=== PATIENT | female | born 2000 | race Hispanic/Latino ===

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

== ENCOUNTER 2023-10-11 14:38 | Emergency (ER) | payer OTHER, SELFPAY ==
[2023-10-11 15:55] LABS: Specific Gravity 1.029 (1.005-1.030)
[2023-10-11 15:56] LABS: Specific Gravity 1.023 (1.005-1.030); Urine Bacteria <20 /HPF (<20); Urine Bilirubin NEGATIVE (Negative); Urine Blood 3+ (OVER) (Negative); Urine Clarity Extremely Turbid (Clear); Urine Color Yellow (Yellow); Urine Crystals Unidentified Few /HPF (None Seen); Urine Culture Reflex Order NOT NEEDED; Urine Glucose NEGATIVE (Negative); Urine Ketones NEGATIVE (Negative); Urine Micro Reflex YN NO BILL MICROSCOPIC; Urine Mucus 4+ /HPF (None Seen); Urine Nitrite NEGATIVE (Negative); Urine Protein TRACE (Negative); Urine RBC <5 /HPF (None Seen); Urine Urobilinogen Normal (Normal); Urine WBC <5 /HPF (<5); Urine pH 6.5 (5.0-7.0)
--- NOTE | 2023-10-11 16:31 | EDPHYS ---
Physician Documentation [facility] Name: Hayley Blakely Age: 23 yrs Sex: Female : 2000 Arrival Date: 10/11/2023 Time: 14:38 Bed 11 Private MD: ED Physician Brian Mccarty HPI: 10/10 15:08 This 23 yrs old Female presents to ER via Ambulatory with complaints of sb4 Vaginal Pain. 15:21 Patient states that she started her menstrual cycle 5 days ago and had placed a tampon. sb4 She states that she got drunk that night and is not sure that she ever removed the tampon. But she has used other tampons since. She does report some lower pelvic pain, but is not sure if it is secondary to her menstrual cycle or not. She denies having any sexual intercourse. Denies any burning with urination or painful urination. Historical: - Allergies: 14:47 No Known Allergies; ll1 - PMHx: 14:47 None; ll1 - PSHx: 14:47 None; ll1 - Immunization history:: Adult Immunizations up to date. - Social history:: Smoking status: Patient denies any tobacco usage or history of. ROS: 15:22 Positive for pelvic pain, sb4 15:22 Constitutional: Negative for fever, chills, and weight loss, 15:22 All other systems are negative, Exam: 15:22 Constitutional: This is a well developed, well nourished patient who is awake, alert, sb4 and in no acute distress. Head/Face: Normocephalic, atraumatic. Eyes: Extra-ocular motions intact. Periorbital areas with no swelling, redness, or edema. ENT: Mucous membranes moist. Skin: Warm, dry with normal turgor. Normal color with no rashes, no lesions, and no evidence of cellulitis. 16:31 Abdomen/GI: Soft, non-tender, no distension. 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 4 in. ; Pain 4/10; 14:47 Body Mass Index 28.32 (74.84 kg, 162.56 cm) ll1 14:47 Pain Scale: Adult ll1 MDM: 14:45 Patient medically screened. sb4 16:30 Data reviewed: vital signs, nurses notes, lab test result(s), and as a result, I will sb4 discharge patient. Counseling: I had a detailed discussion with the patient and/or guardian regarding the historical points, exam findings, and any diagnostic results supporting the discharge/admit diagnosis, lab results, to return to the emergency department if symptoms worsen or persist or if there are any questions or concerns that arise at home. 10/10 14:54 Order name: UAM; Complete Time: 15:58 sb4 10/10 14:54 Order name: Test, Urine; Complete Time: 15:58 sb4 10/10 14:54 Order name: Pelvic Exam Setup; Complete Time: 15:55 sb4 Administered Medications: No medications were administered Disposition: 19:10 I was immediately available on-site in the Emergency Department for consultation in the ms3 care of the patient. Disposition Summary: 10/11/23 16:31 Discharge Ordered Notes: Location: Home sb4 Problem: new sb4 Symptoms: have improved sb4 Condition: Stable sb4 Diagnosis - Dysmenorrhea, unspecified sb4 Followup: sb4 - With: Private Physician - When: As needed - Reason: Recheck today's complaints, Re-evaluation by your physician Discharge Instructions: - Discharge Summary Sheet sb4 - Dysmenorrhea sb4 Forms: - Work release form bd - Patient Portal Instructions sb4 - Leadership Thank You Letter sb4 Signatures: Dispatcher [employer] Cecelia Moran RN RN ll1 Brian Mccarty, DO DO ms3 Ashleigh Morse PA-C PA-C sb4 Corrections: (The following items were deleted from the chart) 14:55 14:55 Urinalysis W/Microscopic+U.LAB.BRZ ordered. EDMS EDMS 14:55 14:55 Test, Urine+UC.LAB.BRZ ordered. EDMS EDMS
--- NOTE | 2023-10-11 16:31 | ER ---
Nurse's Notes [facility] Name: Hayley Blakely Age: 23 yrs Sex: Female : 2000 Arrival Date: 10/11/2023 Time: 14:38 Bed 11 Private MD: Diagnosis: Dysmenorrhea, unspecified Presentation: 10/10 14:47 Chief complaint: Patient states: Had a tampon in a few days ago and went out drinking. ll1 Doesn't remember removing tampon. Having pelvic pain for 2 days. Coronavirus screen: Client denies travel out of the [place] in the last 14 days. At this time, the client does not indicate any symptoms associated with coronavirus-19. Ebola Screen: Patient denies travel to an Ebola-affected area in the 21 days before illness onset. Initial Sepsis Screen: Does the patient meet any 2 criteria? No. Patient's initial sepsis screen is negative. Does the patient have a suspected source of infection? No. Patient's initial sepsis screen is negative. Risk Assessment: Do you want to hurt yourself or someone else? Patient reports no desire to harm self or others. Onset of symptoms was October 09, 2023. 14:47 Method Of Arrival: Ambulatory ll1 14:47 Acuity: PHIL 3 ll1 Triage Assessment: 14:47 General: Appears uncomfortable, Behavior is calm, cooperative, appropriate for age. ll1 Pain: Complains of pain in pelvis Pain currently is 4 out of 10 on a pain scale. Quality of pain is described as aching, crampy. : Reports pain in bilateral in suprapubic area possible tampon in vaginal area. Historical: - Allergies: 14:47 No Known Allergies; ll1 - PMHx: 14:47 None; ll1 - PSHx: 14:47 None; ll1 - Immunization history:: Adult Immunizations up to date. - Social history:: Smoking status: Patient denies any tobacco usage or history of. Screenin:30 [facility] ED Fall Risk Assessment (Adult) History of falling in the last 3 months, iw including since admission No falls in past 3 months (0 pts) Confusion or Disorientation No (0 pts) Intoxicated or Sedated No (0 pts) Impaired Gait No (0 pts) Mobility Assist Device Used No (0 pt) Altered Elimination No (0 pt) Score/Fall Risk Level 0 - 2 = Low Risk Oriented to surroundings, Maintained a safe environment. Abuse screen: Denies threats or abuse. Denies injuries from another. Nutritional screening: No deficits noted. Tuberculosis screening: No symptoms or risk factors identified. Vital Signs: 14:47 BP 131 / 89; Pulse 80; Resp 16; Temp 97.1; Pulse Ox 100% ; Weight 74.84 kg; Height 5 ll1 ft. 4 in. ; Pain 4/10; 14:47 Body Mass Index 28.32 (74.84 kg, 162.56 cm) ll1 14:47 Pain Scale: Adult ll1 ED Course: 14:40 Patient arrived in ED. mr 14:42 Ashleigh Morse PA-C is PHCP. sb4 14:42 Brian Mccarty DO is Attending Physician. sb4 14:49 Triage completed. ll1 14:49 Arm band placed on. ll1 16:00 Assist provider with foreign body removal of tampon from vagina. using a speculum Set iw up for procedure. Performed by Ashleigh Morse PA-C Patient tolerated well. 16:37 Sneha Ren, RN is Primary Nurse. iw Administered Medications: No medications were administered Medication: 16:00 VIS not applicable for this client. iw Outcome: 16:31 Discharge ordered by . sb4 16:38 Patient left the ED. iw Signatures: Isabelle Overton, Reg Reg Sneha Ren, RN RN iw Cecelia Gross RN RN [facility] Ashleigh Morse PA-C PA-C sb4 Corrections: (The following items were deleted from the chart) 20:06 16:00 Assist provider with foreign body removal iw iw
[2023-10-11 16:41] VITALS: BP 131/89; TEMP 97.1; O2SAT 100
== END 2023-10-11 16:38 | disposition home or self-care (01) ==
LOC: ER 14:38
DX: N94.6 Dysmenorrhea, unspecified (principal)
CPT/HCPCS: 81001; 81025

== ENCOUNTER 2023-12-04 14:49 | Emergency (ER) | payer SELFPAY ==
[2023-12-04 15:43] LABS: SARS-CoV-2 Antigen CONTROL BLUE LINE VIS/BG OK; SARS-CoV-2 Antigen Rapid Res Negative (Negative)
--- NOTE | 2023-12-04 16:34 | ER ---
Nurse's Notes [facility] Name: Hayley Blakely Age: 23 yrs Sex: Female : 2000 Arrival Date: 12/04/2023 Time: 14:49 Bed DX3 Private MD: Diagnosis: Nasal congestion Presentation: 12/03 15:03 Chief complaint: Called into work last night with headache, body aches, and sinus hb congestion, work sent for COVID test. Coronavirus screen: At this time, the client does not indicate any symptoms associated with coronavirus-19. Ebola Screen: No symptoms or risks identified at this time. Initial Sepsis Screen: Does the patient meet any 2 criteria? No. Patient's initial sepsis screen is negative. Does the patient have a suspected source of infection? No. Patient's initial sepsis screen is negative. Risk Assessment: Do you want to hurt yourself or someone else? Patient reports no desire to harm self or others. Onset of symptoms was December 03, 2023. 15:03 Method Of Arrival: Ambulatory hb 15:03 Acuity: PHIL 4 hb Triage Assessment: 15:04 General: Appears in no apparent distress. Behavior is calm, cooperative, appropriate ll1 for age, Reports feeling ill for fatigue for. General: wants covid test. Respiratory: Reports cough that is. Historical: - Allergies: 15:04 No Known Allergies; hb - PMHx: 15:04 None; hb - PSHx: 15:04 None; hb - Immunization history:: Adult Immunizations up to date. - Infectious Disease History:: Denies. - Social history:: Smoking status: Reported history of juuling and/or vaping. - Family history:: not pertinent. Screenin:00 [facility] ED Fall Risk Assessment (Adult) History of falling in the last 3 months, ll1 including since admission No falls in past 3 months (0 pts) Confusion or Disorientation No (0 pts) Intoxicated or Sedated No (0 pts) Impaired Gait No (0 pts) Mobility Assist Device Used No (0 pt) Altered Elimination No (0 pt) Score/Fall Risk Level 0 - 2 = Low Risk Oriented to surroundings, Maintained a safe environment, Educated pt \T\ family on fall prevention, incl call for assistance when getting out of bed. Abuse screen: Denies threats or abuse. Denies injuries from another. Nutritional screening: No deficits noted. Tuberculosis screening: No symptoms or risk factors identified. Assessment: 16:00 General: Appears in no apparent distress. Behavior is calm, cooperative. Pain: Pain ll1 currently is 5 out of 10 on a pain scale. 16:00 Neuro: Level of Consciousness is awake, alert, obeys commands, Oriented to person, ll1 place, time, situation. Cardiovascular: Patient's skin is warm and dry. Respiratory: Respiratory effort is even, unlabored, Respiratory pattern is regular, symmetrical. GI: No signs and/or symptoms were reported involving the gastrointestinal system. : No signs and/or symptoms were reported regarding the genitourinary system. EENT: Reports nasal congestion. Derm: Skin is pink, warm \T\ dry. Musculoskeletal: Reports body aches. Vital Signs: 15:03 BP 119 / 77; Pulse 82; Resp 16; Temp 98.3; Pulse Ox 100% on R/A; Weight 74.84 kg; hb Height 5 ft. 4 in. ; Pain 5/10; 15:03 Body Mass Index 28.32 (74.84 kg, 162.56 cm) hb 15:03 Pain Scale: Adult hb ED Course: 14:53 Patient arrived in ED. mg5 14:59 Arm band placed on. hb 15:03 Js Coello MD is Attending Physician. rt 15:04 Triage completed. hb 15:09 SARS RAPID Sent. hb 15:09 Flu Sent. hb 16:00 Patient has correct armband on for positive identification. Provided Education on: ll1 medications, follow up. 16:40 No provider procedures requiring assistance completed. Patient did not have IV access ll1 during this emergency room visit. Administered Medications: No medications were administered Medication: 16:00 VIS not applicable for this client. ll1 Outcome: 16:33 Discharge ordered by MD. rt 16:40 Discharged to home ambulatory, ll1 16:40 Condition: stable 16:40 Discharge instructions given to patient, Instructed on discharge instructions, follow up and referral plans. medication usage, Demonstrated understanding of instructions, follow-up care, medications, 17:16 Patient left the ED. ll1 Signatures: Brigitte Lopes RN RN Cecelia Gross RN RN ll1 Js Coello MD MD rt Adeola Aguilar mg5 Corrections: (The following items were deleted from the chart) 15:05 15:04 PSHx: None; hb hb
--- NOTE | 2023-12-04 16:34 | EDPHYS ---
Physician Documentation [facility] Name: Hayley Blakely Age: 23 yrs Sex: Female : 2000 Arrival Date: 12/04/2023 Time: 14:49 Bed DX3 Private MD: ED Physician Js Coello HPI: 12/03 17:48 This 23 yrs old Female presents to ER via Ambulatory with complaints of Wants rt COVID Test. 17:48 Patient presents to the ED with nasal congestion, body aches for about 1 week. Patient rt states that she believes it is allergies due to the weather changing, however, she was told by her boss to come get a COVID test. She does not believe she has COVID or the flu. Denies other acute complaints, symptoms are mild in severity, no other aggravating alleviating factors.. Historical: - Allergies: 15:04 No Known Allergies; hb - PMHx: 15:04 None; hb - PSHx: 15:04 None; hb - Immunization history:: Adult Immunizations up to date. - Infectious Disease History:: Denies. - Social history:: Smoking status: Reported history of juuling and/or vaping. - Family history:: not pertinent. ROS: 17:48 Constitutional: Negative for fever, chills, and weight loss, Cardiovascular: Negative rt for chest pain, palpitations, and edema, Respiratory: Negative for shortness of breath, cough, wheezing, and pleuritic chest pain, Abdomen/GI: Negative for abdominal pain, nausea, vomiting, diarrhea, and constipation, MS/Extremity: Negative for injury and deformity, Skin: Negative for injury, rash, and discoloration, 17:48 ENT: Positive for rhinorrhea, sinus congestion, Exam: 17:48 Constitutional: This is a well developed, well nourished patient who is awake, alert, rt and in no acute distress. Head/Face: Normocephalic, atraumatic. Chest/axilla: Normal chest wall appearance and motion. Nontender with no deformity. No lesions are appreciated. Cardiovascular: Regular rate and rhythm with a normal S1 and S2. No gallops, murmurs, or rubs. Normal PMI, no JVD. No pulse deficits. Respiratory: Lungs have equal breath sounds bilaterally, clear to auscultation and percussion. No rales, rhonchi or wheezes noted. No increased work of breathing, no retractions or nasal flaring. Abdomen/GI: Soft, non-tender, with normal bowel sounds. No distension or tympany. No guarding or rebound. No evidence of tenderness throughout. Skin: Warm, dry with normal turgor. Normal color with no rashes, no lesions, and no evidence of cellulitis. MS/ Extremity: Pulses equal, no cyanosis. Neurovascular intact. Full, normal range of motion. Vital Signs: 15:03 BP 119 / 77; Pulse 82; Resp 16; Temp 98.3; Pulse Ox 100% on R/A; Weight 74.84 kg; hb Height 5 ft. 4 in. ; Pain 5/10; 15:03 Body Mass Index 28.32 (74.84 kg, 162.56 cm) hb 15:03 Pain Scale: Adult hb MDM: 15:04 Medical Screening Exam initiated rt 17:48 Differential Diagnosis Flu, COVID, URI, allergic rhinitis. Data reviewed: vital signs, rt nurses notes, lab test result(s). Test considered but Not performed: X-ray: Low suspicion for pneumonia, x-ray not indicated. Counseling: I had a detailed discussion with the patient and/or guardian regarding the historical points, exam findings, and any diagnostic results supporting the discharge/admit diagnosis, lab results, the need for outpatient follow up, to return to the emergency department if symptoms worsen or persist or if there are any questions or concerns that arise at home. Response to treatment: There is no appreciated change of the patient's symptoms at this time. 12/03 15:07 Order name: Flu; Complete Time: 15:51 hb 12/03 15:07 Order name: SARS RAPID; Complete Time: 15:51 hb Administered Medications: No medications were administered Disposition Summary: 12/04/23 16:33 Discharge Ordered Notes: Location: Home rt Problem: new rt Symptoms: have improved rt Condition: Stable rt Diagnosis - Nasal congestion rt Followup: rt - With: Private Physician - When: 2 - 3 days - Reason: Discharge Instructions: - Discharge Summary Sheet rt - Allergies, Adult rt Forms: - Medication Reconciliation Form rt - Antibiotic Education rt - Prescription Opioid Use rt - Patient Portal Instructions rt - Leadership Thank You Letter rt Signatures: Dispatcher [employer] Brigitte Milan, RN RN Js Gamble MD MD rt Corrections: (The following items were deleted from the chart) 15:05 15:04 PSHx: None; hb hb
[2023-12-04 22:15] VITALS: BP 119/77; TEMP 98.3; O2SAT 100
== END 2023-12-04 17:16 | disposition home or self-care (01) ==
LOC: ER 14:49
DX: R09.81 Nasal congestion (principal); Z11.52 Encounter for screening for COVID-19
CPT/HCPCS: 36415; 87804; 87811; 99283